=== PATIENT | female | born 1975 ===

== ENCOUNTER 2016-03-28 19:07 | Emergency (ER) | payer OTHER ==
--- NOTE | 2016-03-28 20:48 | RAD ---
03/28/2016 8:43 PM CHEST - 2 VIEWS History: Hemoptysis since yesterday. Fell in late February and fractured ribs, per patient. Comparison: None Findings: Two views of the chest are obtained. The lungs are clear with out effusion or pneumothorax. The cardiomediastinal silhouette is unremarkable.. The osseous structures are intact.. IMPRESSION: No acute intrathoracic process. Nondisplaced injuries cannot be excluded on the basis of this exam, and if there is clinical concern for this, CT would be recommended.
== END 2016-03-28 22:16 | disposition home or self-care (01) ==
LOC: ED 19:07
DX: R05 Cough (principal); Z53.21 Procedure and treatment not carried out due to patient leaving prior to being seen by health care provider